=== PATIENT | female | born 1940 | race Caucasian/White ===

== ENCOUNTER → 2017-05-20 | Outpatient (CLI) | payer OTHER, MEDICARE ==
[~2017-05-20] MED LIST: CYCLOBENZAPRINE10 MG PO; DARVOCET-N 1001 EACH PO; FORMULA E400 UNIT PO; GLYCOLAX17 GM PO; HYDROCHLOROTHIA25 M1 PO; LISINOPRIL20 MG PO; OS-CAL 500+D C1 EACH PO; PRILOSEC 20 MG20 MG PO; SIMVASTATIN40 MG PO
== END ==
LOC: RAD 02:25
DX: Z12.31 Encounter for screening mammogram for malignant neoplasm of breast (principal)

== ENCOUNTER → 2017-07-06 | Outpatient (CLI) | payer OTHER, MEDICARE | LOC: NUC 08:09 | DX: M81.0 Age-related osteoporosis without current pathological fracture (principal) ==

== ENCOUNTER → 2018-06-01 | Outpatient (CLI) | payer OTHER, MEDICARE | LOC: RAD 03:13 | DX: Z12.31 Encounter for screening mammogram for malignant neoplasm of breast (principal) ==

== ENCOUNTER → 2019-06-05 | Outpatient (CLI) | payer OTHER, MEDICARE | LOC: BC 12:04 | DX: Z12.31 Encounter for screening mammogram for malignant neoplasm of breast (principal) ==

== ENCOUNTER 2019-10-12 15:35 | Inpatient (IN) | payer OTHER, MEDICARE ==
[~2019-10-12] VITALS: Ht 160 cm; Wt 61.7 kg
[2019-10-12 16:25] VITALS: BP 146/55
[2019-10-12 16:31] LABS: HEMATOCRIT 40.8 % (37.0-47.0); HEMOGLOBIN 13.7 gm/dL (12.0-15.0); MCH 34.4 pg (26.0-34.0); MCHC 33.6 g/dL (28.0-37.0); MCV 102.4 fL (80.0-100.0); PLATELET COUNT 164 thou/uL (150-400); RBC 3.98 mil/uL (4.20-5.00); RDW 14.8 % (10.5-14.5); WBC 6.8 thou/uL (4.0-11.0)
[2019-10-12 16:45] LABS: ALBUMIN 2.2 g/dL (3.4-5.0); CALCIUM 7.9 mg/dL (8.5-10.1); CREATININE 0.7 mg/dL (0.6-1.0); DIRECT BILIRUBIN 0.7 mg/dL (<0.1-0.3); POTASSIUM 3.1 mmol/L (3.5-5.1); TOTAL BILIRUBIN 1.5 mg/dL (<0.1-1.0); TOTAL PROTEIN 7.2 g/dL (6.4-8.2)
[2019-10-12 17:06] LABS: ABSOLUTE NEUTROPHILS 3.5 thou/uL (1.4-8.2)
[2019-10-12 17:22] LABS: % SATURATION 43 % (20-39); IRON 78 ug/dL (50-170); TIBC 183 ug/dL (250-450)
[2019-10-12 17:24] LABS: INR 1.2; PROTIME 12.7 Seconds (9.3-11.4)
[2019-10-12 17:37] LABS: TSH 7.871 uIU/mL (0.358-3.740)
--- NOTE | 2019-10-12 18:25 | NUR ---
79 YO FEMALE DIRECT ADMIT FROM DR. DAVIS'S OFFICE TO ROOM 200. ADMISSION ASSESSMENT COMPLETED AND CHARTED, ALERT AND ORIENTED X 4, NO COMPLAINTS OF PAIN, SON AT BEDSIDE, NO NEEDS VOICED, WILL CONTINUE TO MONITOR
[2019-10-12 20:05] VITALS: BP 116/45
[2019-10-13 00:10] VITALS: BP 101/41
[2019-10-13 03:13] VITALS: BP 102/51
[2019-10-13 04:07] LABS: IgG 1958 mg/dL (700-1600)
--- NOTE | 2019-10-13 05:27 | NUR ---
TOOK OVER CARE OF PATIENT AROUND 1999. PATIENT RESTING IN BED. DENIED PAIN. GAVE PATIENT CUP FOR HEARING AIDES. ASCITIES AND LOWER EXTREMITES EDEMA. PATIENT WAS OBSERVED HAVING BRP, PATIENT WAS STEADY ON HER FEET, SCORED 20 ON FALL SCALE, TOOK HER OUT OF YELLOWS. PLAN OF CARE IS TO POSSIBLY HAVE A PARACENTESIS TODAY. PATIENT HAS BEEN NPO SINCE MIDNIGHT.
[2019-10-13 06:10] LABS: HAV IgM AB (ANTI-HAV IgM) Negative (Negative); HEPATITIS B SURFACE AG Negative (Negative); HEPATITIS C VIRUS AB 0.1 (0.0-0.9)
[2019-10-13 07:15] VITALS: BP 105/54
--- NOTE | 2019-10-13 08:45 | 2DMMODE ---
[facility] [place] [address] 2 D/M-MODE ECHOCARDIOGRAM Name: BORIS ROSE SHANTHI Room #: 200-I ADM IN ..#: [id number] Admission: 10/12/19 Attend Phys: Masood Loredo, Discharge: Date of : 38 Report #: [id number] THIS REPORT FOR: //name// APPROVED REPORT Study performed: 10/13/2019 06:21:27 EXAM: Limited 2D, Doppler, and color-flow Echocardiogram Status: routine BSA: 1.65 HR: 68 bpm BP: 102/51 mmHg Rhythm: NSR Other Information Study Quality: Good Indications Limited follow up echo for shortness of breath, leg edema. Hx: RBBB, HTN, HLP. (Complete echo done 09/08/19) 2D Dimensions LVOT Diam: 18.17 (18-24mm) Aortic Valve AoV Peak Austin.: 2.19 m/s AO Peak Gr.: 19.18 mmHg LVOT Max P.63 mmHg AO Mean Gr.: 11.27 mmHg AO V2 Mean: 1.60 m/s LVOT Max V: 1.55 m/s AO V2 VTI: 53.94 cm BRYON Vmax: 1.84 cm2 Tricuspid Valve TR Peak Austin.: 2.72 m/s RAP Estimate: 5.00 mmHg TR Peak Gr.: 30.00 mmHg PA Pressure: 35.00 mmHg Left Ventricle The left ventricle is normal size. Left ventricular systolic function is normal. LVEF is 65%. Right Ventricle The right ventricle is normal size. The right ventricular systolic function is normal. [facility] [address] [place] [address] 2 D/M-MODE ECHOCARDIOGRAM Name: ROSEBORIS SHANTHI Room #: 200-I ADM IN .R.#: [id number] Admission: 10/12/19 Attend Phys: Masood Loredo, Discharge: Date of : 38 Report #: [id number] Atria Left atrium is dilated. The right atrium size is normal. Aortic Valve The aortic valve is moderately thickened and calcified. Mild stenosis Mild aortic regurgitation. There is mild valvular aortic stenosis. Calculated aortic valve area is 1.8 cm2 with maximum pressure gradient of 19 mmHg and mean pressure gradient of 11 mmHg. Mitral Valve Moderate mitral annular calcification. Mild-moderate mitral regurgitation. Tricuspid Valve The tricuspid valve is normal in structure. Mild to moderate tricuspid regurgitation. Estimated PAP is 35mmHg. Great Vessels IVC is normal in size and collapses >50% with inspiration. Pericardium There is no pericardial effusion. <Conclusion> Abbreviated study Left ventricular systolic function is normal. LVEF is 65%. The aortic valve is moderately thickened and calcified. Mild stenosis and insufficiency Moderate mitral annular calcification. Mild-moderate mitral regurgitation. There is no pericardial effusion. <ELECTRONICALLY SIGNED> By: Alok Lainez MD, [facility] 10/13/1946 4 4 Alok Lainez MD, [facility] /INF
--- NOTE | 2019-10-13 09:25 | EKG ---
[place] [address] [facility] [place] [place] [address] ELECTROCARDIOGRAM REPORT Name: TAJ ROSESAJAN MAKI Room #: 200-I ADM IN M.R.#: [id number] Admission: 10/12/19 Attend Phys: Masood Loredo MD, Discharge: Date of : 38 Report #: [id number] THIS REPORT FOR: //name// [facility] Test Date: 2019-10-13 Test Time: 07:39:17 Pat Name: BORIS ROSE Department: Room: 200 I Gender: F Collections Manager: RANDI : 1940 Requested By: Ramya Calderon Order Number: [id number] MD: Alok Lainez Measurements Intervals Wilson Rate: 70 P: 19 WV: 101 QRS: -2 QRSD: 115 T: -14 QT: 448 QTc: 484 Interpretive Statements Sinus rhythm Short WV interval Incomplete right bundle branch block Compared to ECG 09/12/1998 06:41:00 Right bundle branch block is now present Electronically Signed On 10-13-2019 9:25:12 MANAGER CAREER by Alok Lainez [email or web address] <ELECTRONICALLY SIGNED> By: Alok Lainez MD, [facility] 10/13/19 0925 [id number] Alok Lainez MD, [facility] /EPI
[2019-10-13 09:27] LABS: CALCIUM 8.2 mg/dL (8.5-10.1); CREATININE 0.6 mg/dL (0.6-1.0); POTASSIUM 3.1 mmol/L (3.5-5.1)
[2019-10-13 12:51] LABS: CLARITY HAZY; COLOR YELLOW; SOURCE ABDOMINAL; TOTAL VOLUME 35 mL
[2019-10-13 13:06] LABS: BF NUCLEATED CELLS 182; BF RBC 370
[2019-10-13 13:12] LABS: ANA INTERPRETATION Negative (Negative)
--- NOTE | 2019-10-13 13:25 | NUR ---
PT WENT FOR US GUIDED PARACENTESIS THIS MORNING. PT IS BACK IN ROOM. ABD IS NON-TENDER TO TOUCH. NEW BANDAID IS PLACED ON R ABD. WILL CONTINUE TO MONITOR PT.
[2019-10-13 14:07] LABS: BF MACROPHAGE 9; BF NEUTROPHILS 12
[2019-10-13 15:08] LABS: CERULOPLASMIN 29.5 mg/dL (19.0-39.0)
[2019-10-13 15:55] VITALS: BP 134/52
--- NOTE | 2019-10-13 16:10 | NUR ---
Chart reviewed and case discussed with the care team. Pt was tapped today. Up ad walt and steady on her feet per nursing. Hem/Onc consult pending. Pt has insurance in place for f/u care. She is within the past few months and her son is involved with her care. No cm needs identified at this time. Will remain available should needs arise.
[2019-10-13 19:02] VITALS: BP 123/56
--- NOTE | 2019-10-13 19:28 | NUR ---
PT REMAINED PAIN FREE THIS SHIFT. PT IS TO BE NPO AFTER MIDNIGHT FOR US ABD + DOPPLER ABD/PELVIS IN AM. PT'S K REPLACED TODAY, AND CMP ORDERED FOR AM. PT UP AD RAYMOND IN ROOM, STEADY ON FEET. PT CALLS APPROPRIATELY.
[2019-10-14 04:54] VITALS: BP 116/46
--- NOTE | 2019-10-14 06:07 | NUR ---
ASSESSMENTS CHARTED. MEDS CHARTED. PATIENT RELAXING IN BED DURING SHIFT. SINUS RHYTHM WITH BBB ON TELEMETRY, ON ROOM AIR, HAS AN IRRITATING COUGH. NPO SINCE MIDNIGHT FOR ULTRA SOUND OF ABDOMEN/PELVIS SCHEDULED FOR LATER TODAY. YESTERDAY SHE HAD PARACENTESIS VIA RIGHT SIDE AND TOOK 1 LITER OFF. ABDOMEN STILL FIRM AT START OF SHIFT. PLAN OF CARE IS TO CONTINUE CARE ON AN OUTPATIENT BASIS WITH FOLLOWING DOCTORS. DENIES PAIN. PATIENT UP AT RAYMOND IN ROOM.
[2019-10-14 06:22] LABS: ALBUMIN 1.7 g/dL (3.4-5.0); CALCIUM 8.2 mg/dL (8.5-10.1); CREATININE 0.6 mg/dL (0.6-1.0); POTASSIUM 3.4 mmol/L (3.5-5.1); TOTAL BILIRUBIN 1.4 mg/dL (<0.1-1.0); TOTAL PROTEIN 5.6 g/dL (6.4-8.2)
[2019-10-14 07:15] VITALS: BP 107/43
[2019-10-14] MEDS ORDERED: SYNTHROID50 MCG PO (08:23)
[2019-10-14] MEDS ORDERED: DEMADEX20 MG PO (08:23)
[2019-10-14 09:40] VITALS: BP 107/43
--- NOTE | 2019-10-14 10:50 | NUR ---
AAOX4. BEING DISCHARGED TO HOME TODAY. FOLLOWING UP WITH ONCOLOGY AND GI. WISHES TO SPEAK TO GI BEFORE DISCHARGE. SR/SB PER TELE. ADULT SON AT BEDSIDE. WILL CONTINUE TO FOLLOW CLOSELY.
[2019-10-14 11:15] VITALS: BP 141/51
[2019-10-14 11:50] VITALS: BP 107/43
[2019-10-15 09:10] LABS: BODY FLUID ALBUMIN 0.3 g/dL (Not Estab.); BODY FLUID AMYLASE 17 U/L (()); BODY FLUID GLUCOSE 88 mg/dL (()); BODY FLUID LDH 60 IU/L (())
[2019-10-15 16:07] LABS: MITOCHONDRIAL ANTIBODY <20.0 Units (0.0-20.0); SMOOTH MUSCLE ANTIBODY 65 Units (0-19)
[2019-10-16 08:03] LABS: SOURCE ABDOMINAL
--- NOTE | 2019-10-16 17:06 | PATH ---
[facility] [address] [place] [address] PATHOLOGY RPT PROCEDURE Name: BORIS ROSE Room #: 200-I DIS IN M.R.#: [id number] Admission: 10/12/19 Date of : 38 Discharge: 10/14/19 Report #: [id number] Path Case #: [id number] Note [facility] Accession Number: [id number] TESTS RESULT FLAG UNITS REF RANGE LAB Clinician Provided Cytology Information No. of containers..01 Other (Miscellaneous) Source: 01 ABDOMINAL FLUID DIAGNOSIS: 02 ABDOMINAL FLUID NEGATIVE FOR MALIGNANT EPITHELIAL CELLS. REACTIVE MESOTHELIAL CELLS ARE PRESENT. THIS INTERPRETATION INCLUDES EVALUATION OF A CELL BLOCK. Pathologist ICD10: 02 R18.8 Signed out by: 02 Aggie Cuellar MD, Pathologist NPI- [id number] Performed by: Rajinder Wilson Financial Project Manager ([facility]) Gross description: 01 10 ML, YELLOW, CLEAR /LCS 11/21/1840 0000 Local FLAG LEGEND: L-Low Normal,H-High Normal,LL-Alert Low,HH-Alert High <-Panic Low,>-Panic High,A-Abnormal,AA-Critical Abnormal Performed at: [address] [place] [address] Emir Wagner MD, [address] [address] Aggie Cuellar MD, Specimen Comment: A courtesy copy of this report has been sent to [phone] Specimen Comment: [id number] Specimen Comment: Report sent to Performed at: [address], [place], [place] [id number] MD Emir Wagner MD Phone: [phone]
== END 2019-10-14 12:40 | disposition home or self-care (01) | DRG 441 ==
LOC: 2N 15:35
PROVIDERS: Nurse Practitioner; Nurse Practitioner Adult Health; ADMIT Internal Medicine Cardiovascular Disease
PROC: 0W9G3ZZ Drainage of Peritoneal Cavity, Percutaneous Approach (ICD-10-PCS; principal; 2019-10-13)
DX: K75.81 Nonalcoholic steatohepatitis (NASH) (principal); E43 Unspecified severe protein-calorie malnutrition; R18.8 Other ascites; K74.60 Unspecified cirrhosis of liver; I10 Essential (primary) hypertension; E78.5 Hyperlipidemia, unspecified; E03.9 Hypothyroidism, unspecified; K21.9 Gastro-esophageal reflux disease without esophagitis; R91.1 Solitary pulmonary nodule; R63.4 Abnormal weight loss; R68.81 Early satiety; R63.0 Anorexia; Z96.642 Presence of left artificial hip joint; I45.10 Unspecified right bundle-branch block; I87.2 Venous insufficiency (chronic) (peripheral); E78.00 Pure hypercholesterolemia, unspecified; Z85.038 Personal history of other malignant neoplasm of large intestine; Z88.2 Allergy status to sulfonamides; Z90.49 Acquired absence of other specified parts of digestive tract; Z90.710 Acquired absence of both cervix and uterus; Z80.0 Family history of malignant neoplasm of digestive organs; Z68.24 Body mass index [BMI] 24.0-24.9, adult; Z82.49 Family history of ischemic heart disease and other diseases of the circulatory system; Z88.8 Allergy status to other drugs, medicaments and biological substances
CPT/HCPCS: 10081